=== PATIENT | male | born 1955 | race American Indian/Alaskan Native ===

== ENCOUNTER 2019-10-04 09:46 | Day surgery (SDC) | payer OTHER ==
[~2019-10-04 09:46] MED LIST: SODIUM CHLORIDE 0.9% 1000 ML 1,000 ML IV SCH
[2019-10-04] MEDS ORDERED: MIDAZOLAM 2 MG/2 ML INJ ONE ×2 (11:55→12:09)
[2019-10-04] MEDS ORDERED: fentaNYL 100 MCG/2 ML INJ ONE (11:59)
[2019-10-04] MEDS ORDERED: WATER FOR IRRIG STERILE 250 ML BOTTLE IR ONE (12:31)
--- NOTE | 2019-10-04 12:34 | Procedure Note ---
Date of procedure: 10/04/19 Pre-op diagnosis: Colon Polyp Screening Post-op diagnosis: other (No Colon Polyp or Diverticular Disease or Internal Hemorrhoids noted; Prep was suboptimal (mucosa was washed with copious amount of water)) Procedure: Colonoscopy Anesthesia: MAC Surgeon: CAMILO MIGUEL Estimated blood loss: none Pathology: none Condition: stable Disposition: same day (Resume home medication and follow up in 1 to 2 weeks ([phone]). Possibly to repeat colonoscopy in 1 to 2 years because of his suboptimal prep.)
--- NOTE | 2019-10-04 12:54 | Operative Report ---
PROCEDURE: Colonoscopy. INDICATIONS: This is a 64-year-old -[place] gentleman with an underlying history of posttraumatic stress disorder, prior history of a CVA. He is said to have had colon polyps in the past. Repeat colonoscopy was done after getting informed consent from the patient's family. DESCRIPTION OF PROCEDURE: Sedation was given by anesthesia because of the patient's likelihood of underlying coronary artery disease and history of CVA, the patient was given 3 mg of IV Versed and 25 mcg of fentanyl. Initial rectal exam was unremarkable. Instrument was passed through the rectum onto the cecum, which was identified with ileocecal valve and appendiceal orifice. Visualization was fair to poor. The prep was suboptimal. The mucosa was washed with copious amounts of water. No significant pathology was noted in the cecum, ascending colon, transverse colon, descending colon, sigmoid and the rectum appeared normal on the retroverted view. No biopsies were done and no bleeding was associated with the procedure. There were no complications associated with the procedure. ASSESSMENT: Colon polyp screening, no colon polyps or diverticular disease or internal hemorrhoids noted. The patient had a suboptimal prep and the mucosa was washed with copious amounts of water. PLAN: To resume previous medication. Have the patient follow up in the office in 1-2 weeks' time. Because of the patient's suboptimal prep, the patient may benefit from another colonoscopy in 1-2 years' time. Procedure was done in the GI lab with assistance of the GI lab team, which included Kirstin GONZALEZ as well as Lisa shelton and with assistance of anesthesia. JOB# [id number] ZIGGY/TAMRA
[2019-10-04] MEDS ORDERED: LIDOCAINE MPF (2%) 20 MG/1 ML VIAL 5 ML ONE (13:00)
--- NOTE | 2019-10-04 13:04 | Anesthesia Day of Surgery ---
Anesthesia Day of Surgery - Day of Surgery Patient Examined: Yes Patient H&P Reviewed: Yes Patient is NPO: Yes Cardiac Clearance: No (hasn't seen a crab fisher in > 5 yrs. in light of stroke hx./comorbidities) Pulmonary Clearance: No Cody's Test: N/A
--- NOTE | 2019-10-04 13:09 | Anesthesia Consultation ---
Anesthesia Consult and Med Hx Date of service: 10/04/19 - Airway Anesthetic Teeth Evaluation: Poor, Chipped ROM Head & Neck: Adequate Mental/Hyoid Distance: Adequate Mallampati Class: Class III Intubation Access Assessment: Possibly Difficult - Pulmonary Exam CTA: Yes - Cardiac Exam Cardiac Exam: RRR - Pre-Operative Health Status ASA Pre-Surgery Classification: ASA3 Proposed Anesthetic Plan: MAC - Pre-Anesthesia Comment Pre-Anesthesia Comments: patient is not optimized for today's procedure; unable to obtain invaluable records from [facility] to better evaluate patient's suitability for low risk procedure. spent > 45 minutes speaking wtih patient and his about importance of obtaining such information. asked appropriate questions about the safety moving forward in light of the difficulty she has experienced at (and with) the [facility] system. Decision to proceed with minimal sedation (25mcg IV fentanyl max nd versed) - Pulmonary Hx Smoking: No - Cardiovascular System Hx Hypertension: Yes - Central Nervous System Hx Psychiatric Problems: Yes (PTSD)
[2019-10-04 13:13] VITALS: BP 100/55
--- NOTE | 2019-10-04 13:13 | Post Anesthesia Evaluation ---
- Post Anesthesia Evaluation Patient Participated: Yes Airway Patent: Yes Stable Respiratory Function: Yes Nausea/Vomiting: Yes (one vomiting episode intraop with no aspiration ) Temp > 96.8F: Yes Pain Manageable: No Adequeate Hydration: Yes Anesthesia Complications: No Block Receding Appropriately: No Patient on Ventilator: No
== END 2019-10-04 09:47 | disposition home or self-care (01) ==
LOC: GIO 09:46
DX: Z12.11 Encounter for screening for malignant neoplasm of colon (principal); K64.8 Other hemorrhoids; H40.9 Unspecified glaucoma; I10 Essential (primary) hypertension; Z79.899 Other long term (current) drug therapy; Z87.891 Personal history of nicotine dependence; Z86.010 Personal history of colon polyps; Z88.6 Allergy status to analgesic agent; Z86.73 Personal history of transient ischemic attack (TIA), and cerebral infarction without residual deficits
CPT/HCPCS: 45378; J2250; J3010; J7030